=== PATIENT | male | born 1985 | race Caucasian/White ===

== ENCOUNTER 2019-10-15 14:38 | Emergency (ER) | payer OTHER, SELFPAY ==
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
--- NOTE | ~2019-10-15 | XR_ITS ---
EXAMINATION: XR thoracic spine 3V EXAM DATE: 10/15/2019 15:14 INDICATION: Pain with limited shoulder blades. TECHNIQUE: Frontal and lateral projections of the thoracic spine as well as lateral swimmers projecti on of the upper thoracic spine for interpretation. There is no prior study for comparison. FINDINGS: There are no acute fractures identified. The vertebral bodies are aligned in the AP dime nsion. Vertebral body and disc heights are well-maintained. Difficult to identify the minimal T2 comp ression seen on CT. Paraspinal soft tissue is unremarkable. IMPRESSION: Unremarkable XR thoracic spine 3V exam. Reviewed, dictated and finalized at location A. GAGE CLERK
[2019-10-15 14:39] VITALS: BP 129/87; PULSE 75; RESP 18; TEMP 36.3; O2SAT 100
[2019-10-15 14:54] VITALS: BP 130/90; PULSE 88; RESP 16; TEMP 36.7; O2SAT 97
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
--- NOTE | 2019-10-15 15:40 | PC.NURSE ---
C-collar removed post CT scan results.
== END 2019-10-15 16:15 | disposition home or self-care (01) ==
PROVIDERS: Emergency Provider Emergency Medicine
DX: S13.4XXA Sprain of ligaments of cervical spine, initial encounter (principal); S29.012A Strain of muscle and tendon of back wall of thorax, initial encounter; V49.40XA Driver injured in collision with unspecified motor vehicles in traffic accident, initial encounter
CPT/HCPCS: 72072; 72125; 99284; L0140

== ENCOUNTER 2023-09-13 13:20 | Emergency (ER) | payer OTHER, SELFPAY ==
[2023-09-13 13:28] VITALS: BP 119/86; PULSE 76; RESP 18; TEMP 36.6; O2SAT 98
--- NOTE | 2023-09-13 13:31 | ED.SKABFB ---
HPI - Skin/Abscess/Foreign Bdy General Chief complaint: Wound/Laceration Stated complaint: Right Thumb Injury/Cut Time Seen by Provider: 09/13/23 13:30 Source: patient and RN notes reviewed Mode of arrival: ambulatory Limitations: no limitations History of Present Illness HPI narrative: 38-year-old male presents with concern for laceration to the 1st digit of and right hand. Reports he cut the hand on the nozzle of a jar. He reports he is up-to-date this at vaccination. He denies any decreased strength, sensation, range of motion in the digit. MD complaint: laceration Related Data Home Medications Medication Instructions Recorded Confirmed No Home Medications 09/13/23 09/13/23 Allergies Allergy/AdvReac Type Severity Reaction Status Date / Time No Known Allergies Allergy Verified 09/13/23 13:32 Review of Systems Review of Systems: CONSTITUTIONAL: Denies malaise, chills, sweats, or fever. SKIN: Reports laceration to the 1st digit of the right hand MUSCULOSKELETAL: Denies muscle skeletal pain NEUROLOGIC: Denies numbness, weakness All systems reviewed & are unremarkable except as noted in HPI and below PMFSH Comments At time of signature, agree with nursing past medical, surgical, social and family history. There is no relevant family history pertinent to the presenting complaint Exam Narrative: GENERAL: Well-appearing, well-nourished, and in no acute distress. HEAD: Normocephalic, atraumatic. EYES: PERRLA, conjunctivae clear, and EOMI. ENT: Mucous membranes moist. NECK: Supple. No lymphadenopathy CHEST: Clear to auscultation. No respiratory distress. HEART: Regular rate and rhythm. SKIN: Warm, dry. 1.5 cm linear laceration noted to the palmar aspect of the distal 1st digit of the right hand, superficial NEURO: Alert and oriented x3. PSYCH: Normal mood and affect Course Course Emergency Course: Patient is aware of diagnosis, understands and agrees to treatment plan. Anticipatory guidance given. Patient agrees to follow-up as directed and is aware of reasons to seek care at the emergency department. Portions of this record may have been created with voice recognition software Level of Care: Express Care Visit Vital Signs Vital signs: Vital Signs Temperature 97.9 F 09/13/23 13:28 Pulse Rate 76 09/13/23 13:28 Respiratory Rate 18 09/13/23 13:28 Blood Pressure 119/86 09/13/23 13:28 Pulse Oximetry 98 09/13/23 13:28 Oxygen Delivery Room Air 09/13/23 13:28 Temperature 97.9 F 09/13/23 13:28 Pulse Rate 76 09/13/23 13:28 Respiratory Rate 18 09/13/23 13:28 Blood Pressure 119/86 09/13/23 13:28 Pulse Oximetry 98 09/13/23 13:28 Oxygen Delivery Room Air 09/13/23 13:28 Reviewed. Procedures Laceration Laceration 1: Date: 09/13/23 Time: 13:40 Site: hand Side (If applicable): right Size (cm): 1.5 Description: linear Depth: simple, single layer ====== Skin Level ====== Skin layer closed with: dermabond ====== Subcutaneous Layer ====== ====== Muscle Layer ====== ====== Tendon Layer ====== MDM - Skin/Abscess/Foreign Bdy MDM Narrative Medical decision making narrative: Exam findings show no acute concerns or changes; patient is non-toxic appearing and is in no distress. Patient is appropriate for outpatient treatment and follow-up. Critical Care Time Critical Care Time Critical Care Time: No Discharge Plan Discharge Clinical Impression: Laceration Patient Disposition: Home, Self-Care Condition: Stable Instructions: Laceration (ED) Additional Instructions: Skin adhesive care: -adhesive works like a bandage; do not use antibiotic ointment as it can break down the adhesive -You can shower while the adhesive is on your skin, but do not take a bath or soak or scrub the area for 7-10 days. Dry your skin by patting it gently with a towel. -The adhesive will
== END 2023-09-13 13:47 | disposition home or self-care (01) ==
PROVIDERS: Emergency Provider Nurse Practitioner
DX: S61.411A Laceration without foreign body of right hand, initial encounter (principal); W45.8XXA Other foreign body or object entering through skin, initial encounter
CPT/HCPCS: 12001; 99212; G0463